=== PATIENT | male | born 1950 | race Caucasian/White ===

== ENCOUNTER → 2016-12-08 | Outpatient (CLI) | payer MEDICARE ==
[2016-12-08 06:44] LABS: HEMOGLOBIN 9.4 gm/dl (14.0-17.5); RED BLOOD COUNT 4.81 M/UL (4.20-5.50); WHITE BLOOD COUNT 12.7 K/UL (4.5-11.0)
[2016-12-08 06:49] LABS: BUN/CREATININE RATIO 20 (0-10)
== END ==
LOC: LAB 06:04
PROVIDERS: Nurse Practitioner
DX: D51.0 Vitamin B12 deficiency anemia due to intrinsic factor deficiency (principal); E11.9 Type 2 diabetes mellitus without complications; E55.9 Vitamin D deficiency, unspecified; I10 Essential (primary) hypertension; R53.81 Other malaise; R53.83 Other fatigue
CPT/HCPCS: 36415; 80053; 80061; 82607; 82746; 83036; 85027

== ENCOUNTER → 2016-12-10 | Outpatient (CLI) | payer MEDICARE | LOC: OPSV 08:59 | DX: D50.9 Iron deficiency anemia, unspecified (principal); K90.9 Intestinal malabsorption, unspecified | CPT/HCPCS: 96365; J7050 ==

== ENCOUNTER → 2016-12-17 | Outpatient (CLI) | payer MEDICARE | LOC: OPSV 09:18 | DX: D50.9 Iron deficiency anemia, unspecified (principal); K90.9 Intestinal malabsorption, unspecified | CPT/HCPCS: 96365; J7050 ==

== ENCOUNTER → 2021-01-15 | Outpatient (CLI) | payer MEDICARE ==
[~2021-01-15] MED LIST: BACTROBAN CREAM15 GM TOP; KEFLEX CAP 500500 MG PO; NORCO 5-325 TA1 EACH PO; PERCOCET 5/325 T1 EA PO; ZOFRAN ODT 4 MG4 MG PO
[2021-01-15 07:36] LABS: HEMOGLOBIN 12.1 gm/dl (14.0-17.5); RED BLOOD COUNT 5.24 M/UL (4.20-5.50); WHITE BLOOD COUNT 9.6 K/UL (4.5-11.0)
[2021-01-15 08:04] LABS: BUN/CREATININE RATIO 17 (0-10)
[2021-01-16 08:14] LABS: T3 UPTAKE 27 % (24-39)
[2021-01-19 21:10] LABS: TESTOSTERONE, SERUM 389 ng/dL (264-916)
== END ==
LOC: LAB 06:16
PROVIDERS: Nurse Practitioner
DX: Z12.5 Encounter for screening for malignant neoplasm of prostate (principal); E11.9 Type 2 diabetes mellitus without complications; E78.2 Mixed hyperlipidemia; R53.82 Chronic fatigue, unspecified; E55.9 Vitamin D deficiency, unspecified; E53.8 Deficiency of other specified B group vitamins; R68.89 Other general symptoms and signs; R94.6 Abnormal results of thyroid function studies; R79.89 Other specified abnormal findings of blood chemistry
CPT/HCPCS: 36415; 80053; 80061; 82607; 82746; 83036; 84402; 84403; 84439; 84443; 84479; 84481; 85025; G0103

== ENCOUNTER → 2021-04-24 | Outpatient (CLI) | payer MEDICARE ==
[2021-04-24 07:05] LABS: HEMOGLOBIN 12.1 gm/dl (14.0-17.5); RED BLOOD COUNT 5.04 M/UL (4.20-5.50); WHITE BLOOD COUNT 17.8 K/UL (4.5-11.0)
[2021-04-24 07:31] LABS: BUN/CREATININE RATIO 14 (0-10)
[2021-04-25 08:13] LABS: VITAMIN D, 25-HYDROXY 41.8 ng/mL (30.0-100.0)
== END ==
LOC: LAB 06:27
PROVIDERS: Nurse Practitioner
DX: I10 Essential (primary) hypertension (principal); E78.2 Mixed hyperlipidemia; E11.9 Type 2 diabetes mellitus without complications; R53.82 Chronic fatigue, unspecified; D51.9 Vitamin B12 deficiency anemia, unspecified; E55.9 Vitamin D deficiency, unspecified
CPT/HCPCS: 36415; 80053; 80061; 82043; 82607; 83036; 84439; 84443; 84480; 85025

== ENCOUNTER → 2021-08-27 | Outpatient (CLI) | payer MEDICARE ==
[2021-08-27 07:50] LABS: HEMOGLOBIN 11.6 gm/dl (14.0-17.5); RED BLOOD COUNT 5.25 M/UL (4.20-5.50); WHITE BLOOD COUNT 10.6 K/UL (4.5-11.0)
[2021-08-28 07:10] LABS: ESTIM. AVG GLU (EAG) 232 mg/dL (.); HEMOGLOBIN A1C 9.7 % (4.8-5.6)
[2021-08-28 08:14] LABS: CHOLESTEROL, TOTAL 102 mg/dL (100-199); HDL CHOLESTEROL 22 mg/dL (>39); LDL CHOLESTEROL CALC 49 mg/dL (0-99); LDL/HDL RATIO 2.2 ratio (0.0-3.6); T. CHOL/HDL RATIO 4.6 ratio (0.0-5.0); TRIGLYCERIDES 182 mg/dL (0-149); TRIIODOTHYRONINE (T3) 153 ng/dL (71-180)
[2021-08-28 09:16] LABS: VITAMIN D, 25-HYDROXY 41.9 ng/mL (30.0-100.0)
[2021-08-28 10:16] LABS: A/G RATIO 1.9 (1.2-2.2); ALKALINE PHOSPHATASE, S 172 IU/L (44-121); ALT (SGPT) 15 IU/L (0-44); AST (SGOT) 18 IU/L (0-40); BILIRUBIN, TOTAL 0.5 mg/dL (0.0-1.2); BUN 11 mg/dL (8-27); BUN/CREATININE RATIO 13 (10-24); CALCIUM, SERUM 8.8 mg/dL (8.6-10.2); CARBON DIOXIDE, TOTAL 21 mmol/L (20-29); CHLORIDE, SERUM 102 mmol/L (96-106); CREATININE, SERUM 0.83 mg/dL (0.76-1.27); EGFR IF AFRICN AM 104 (>59); EGFR IF NONAFRICN AM 90 (>59); GLOBULIN, TOTAL 2.3 g/dL (1.5-4.5); GLUCOSE, SERUM 181 mg/dL (65-99); POTASSIUM, SERUM 4.3 mmol/L (3.5-5.2); PROTEIN, TOTAL, SERUM 6.6 g/dL (6.0-8.5); SODIUM, SERUM 140 mmol/L (134-144)
== END ==
LOC: LAB 06:00
PROVIDERS: Nurse Practitioner
DX: I10 Essential (primary) hypertension (principal); E78.2 Mixed hyperlipidemia; E11.9 Type 2 diabetes mellitus without complications; R53.82 Chronic fatigue, unspecified; E03.9 Hypothyroidism, unspecified; D51.9 Vitamin B12 deficiency anemia, unspecified; E55.9 Vitamin D deficiency, unspecified
CPT/HCPCS: 36415; 80053; 80061; 82043; 82607; 83036; 84439; 84443; 84480; 85025

== ENCOUNTER → 2021-12-09 | Outpatient (CLI) | payer MEDICARE ==
[2021-12-09 06:42] LABS: HEMOGLOBIN 11.7 gm/dl (14.0-17.5); RED BLOOD COUNT 5.27 M/UL (4.20-5.50); WHITE BLOOD COUNT 9.8 K/UL (4.5-11.0)
[2021-12-09 07:13] LABS: BUN/CREATININE RATIO 16 (0-10)
== END ==
LOC: LAB 06:07
PROVIDERS: Nurse Practitioner
DX: Z12.5 Encounter for screening for malignant neoplasm of prostate (principal); I10 Essential (primary) hypertension; E78.2 Mixed hyperlipidemia; E53.8 Deficiency of other specified B group vitamins; E55.9 Vitamin D deficiency, unspecified
CPT/HCPCS: 36415; 80053; 80061; 82607; 83036; 85025; G0103

== ENCOUNTER → 2022-03-11 | Outpatient (CLI) | payer MEDICARE ==
[2022-03-11 06:36] LABS: HEMOGLOBIN 10.3 gm/dl (14.0-17.5); RED BLOOD COUNT 4.68 M/UL (4.20-5.50); WHITE BLOOD COUNT 8.7 K/UL (4.5-11.0)
[2022-03-11 07:08] LABS: BUN/CREATININE RATIO 20 (0-10)
== END ==
LOC: LAB 06:17
PROVIDERS: Nurse Practitioner
DX: I10 Essential (primary) hypertension (principal); E78.2 Mixed hyperlipidemia; E11.40 Type 2 diabetes mellitus with diabetic neuropathy, unspecified; R53.82 Chronic fatigue, unspecified; E55.9 Vitamin D deficiency, unspecified
CPT/HCPCS: 36415; 80053; 80061; 82652; 83036; 84443; 85025